=== PATIENT | male | born 1945 | race Caucasian/White ===

== ENCOUNTER 2020-12-26 11:05 | Inpatient (IN) ==
[2020-12-26] MEDS ORDERED: ONDANSETRON 4 MG/2 ML VIAL IV STA (11:53)
[2020-12-26] MEDS ORDERED: HYDROmorphone 2 MG/1 ML VIAL IV STA (11:53)
[2020-12-26 12:25] LABS: Basophils % 2.3 % (0.0-0.8); Eosinophils % 1.1 % (0.00-10.9); Hematocrit 36.9 VOL% (42.0-52.0); Hemoglobin 12.6 GM/DL (14.0-18.0); Immature Granulocytes % 5.7 %; Immature Granulocytes Absolute 0.05 #; Lymphocytes # 0.4 10*3/uL (1.4-4.0); Lymphocytes % 46.6 % (21.2-54.2); Mean Corpuscular HGB Conc 34.1 GM/DL (32-36); Mean Corpuscular Volume 88.9 FL (87-102); Mean Platelet Volume 10.4 FL (9.6-12.0); Monocytes % 15.9 % (1.7-12.7); Neutrophils % 28.4 % (38.7-73.9); Platelet Count 68 T/CUMM (130-400); Red Blood Count 4.15 MC/CUMM (3.8-5.5); Red Cell Distribution Width 14.3 % (9.3-17.3)
[2020-12-26 12:29] LABS: White Blood Count 0.9 T/CUMM (4-12)
[2020-12-26 12:47] LABS: Alanine Aminotransferase 28 U/L (16-61); Albumin 3.3 G/DL (3.4-5.0); Alkaline Phosphatase 142 U/L (45-117); Aspartate Amino Transferase 19 U/L (0-37); Blood Urea Nitrogen 34 MG/DL (7-18); Calcium 7.8 MG/DL (8.5-10.1); Carbon Dioxide 24 MMOL/L (21-32); Estimated Glom Filtration Rate 47 ML/MIN; Glucose 140 MG/DL (74-106); Osmolality,Calculated 279.1 MOS/KG (273-304); Sodium 135 MMOL/L (136-145); Total Protein 6.5 G/DL (6.4-8.2)
[2020-12-26 13:13] LABS: Lymphocytes 45 % (20-55); Ovalocytes Few; Platelet Estimate Decreased; Polychromasia Slight; Segmented Neutrophils 23 % (50-85); Total Cells Counted 100
[2020-12-26 13:18] LABS: Bilirubin,Urine Negative (Negative); Blood, Urine Negative (Negative); Glucose,Urine (UA) 50 mg/dL (Negative); Ketones,Urine Negative (Negative); Nitrite,Urine Negative (Negative); Protein,Urine 30 MG/DL; RBC,Urine 1 /HPF (0-4); Urine Appearance CLEAR (Clear); Urine Color Yellow (Yellow); Urine Urobilinogen < 2.0 EU/DL (0.2-1.0)
[2020-12-26] MEDS ORDERED: hydrALAZINE 20 MG/1 ML VIAL IV PRN (14:31)
[2020-12-26] MEDS ORDERED: GLUCAGON 1 MG VIAL IM PRN (14:31)
[2020-12-26] MEDS ORDERED: DEXTROSE 50% 25 GM/50 ML VIAL IV PRN (14:31)
[2020-12-26] MEDS ORDERED: ONDANSETRON 4 MG/2 ML VIAL IV PRN (14:31)
[2020-12-26] MEDS: ALBUTEROL/IPRATROPIUM 3 ML NEB RESP TX SCH ×2 (15:00→20:05)
[2020-12-26] MEDS ORDERED: POTASSIUM CHLORIDE 20 MEQ TABLET PO ONE (15:24)
[2020-12-26] MEDS: LACTULOSE 20 GM/30 ML UDCUP PO SCH ×2 (16:56→21:21)
[2020-12-26] MEDS: DOCUSATE SODIUM 100 MG CAPSULE PO SCH ×2 (16:56→21:21)
[2020-12-26] MEDS ORDERED: SODIUM CHLORIDE 0.9% 500 ML IV ONE (19:28)
[2020-12-26] MEDS: cefTRIAXone 1,000 MG in SODIUM CHLORIDE 0.9% 100 ML IV SCH (20:47)
[2020-12-26] MEDS ORDERED: ASPIRIN EC 81 MG TABLET PO SCH (21:00)
[2020-12-26] MEDS: ATORVASTATIN 20 MG TABLET PO SCH (21:20)
[2020-12-26] MEDS: SODIUM CHLORIDE 0.9% 1,000 ML IV SCH (21:21)
[2020-12-26] MEDS: metroNIDAZOLE INJ 500 MG/100 ML PREMIX IV SCH (21:21)
[2020-12-27] MEDS: ALBUTEROL/IPRATROPIUM 3 ML NEB RESP TX SCH ×4 (01:48→20:13)
[2020-12-27] MEDS: LACTULOSE 20 GM/30 ML UDCUP PO SCH ×3 (02:34→15:34)
[2020-12-27] MEDS: SODIUM CHLORIDE 0.9% 1,000 ML IV SCH ×4 (03:10→20:36)
[2020-12-27] MEDS: metroNIDAZOLE INJ 500 MG/100 ML PREMIX IV SCH ×3 (05:10→18:36)
[2020-12-27 05:28] LABS: Basophils % 1.9 % (0.0-0.8); Hematocrit 28.5 VOL% (42.0-52.0); Hemoglobin 9.8 GM/DL (14.0-18.0); Immature Granulocytes % 5.7 %; Immature Granulocytes Absolute 0.06 #; Lymphocytes # 0.6 10*3/uL (1.4-4.0); Lymphocytes % 57.1 % (21.2-54.2); Mean Corpuscular HGB Conc 34.4 GM/DL (32-36); Mean Corpuscular Volume 89.6 FL (87-102); Mean Platelet Volume 11.2 FL (9.6-12.0); Monocytes % 27.6 % (1.7-12.7); Neutrophils % 6.7 % (38.7-73.9); Red Blood Count 3.18 MC/CUMM (3.8-5.5); Red Cell Distribution Width 14.2 % (9.3-17.3); White Blood Count 1.1 T/CUMM (4-12)
[2020-12-27 05:46] LABS: Platelet Count 37 T/CUMM (130-400)
[2020-12-27 06:40] LABS: Calcium 6.9 MG/DL (8.5-10.1); Osmolality,Calculated 279.8 MOS/KG (273-304); Potassium 3.1 MMOL/L (3.5-5.1)
[2020-12-27] MEDS ORDERED: POTASSIUM CHLORIDE 20 MEQ TABLET PO ONE (07:37)
[2020-12-27 08:14] LABS: Atypical Lymphocytes Few; Eosinophils 1 % (0-10); Lymphocytes 91 % (20-55); Macrocytosis Slight; Nucleated Red Blood Cells 1 (0-5); Platelet Estimate Decreased; Reactive Lymphocytes 3+; Segmented Neutrophils 4 % (50-85); Total Cells Counted 100
[2020-12-27] MEDS ORDERED: FILGRASTIM-SNDZ 300 MCG/0.5 ML SYRINGE SUBCUT SCH (09:00)
[2020-12-27] MEDS: PANTOPRAZOLE 40 MG TABLET PO SCH (10:49)
[2020-12-27] MEDS: DOCUSATE SODIUM 100 MG CAPSULE PO SCH ×3 (10:49→20:35)
[2020-12-27] MEDS: TAMSULOSIN 0.4 MG CAPSULE PO SCH (10:49)
[2020-12-27] MEDS: FILGRASTIM-SNDZ 480 MCG/0.8 ML SYRINGE SUBCUT SCH (10:58)
[2020-12-27] MEDS: LUBIPROSTONE 8 MCG CAPSULE PO SCH (20:34)
[2020-12-27] MEDS: ATORVASTATIN 20 MG TABLET PO SCH (20:35)
[2020-12-27] MEDS: POTASSIUM CHLORIDE 20 MEQ TABLET PO SCH (20:35)
[2020-12-27] MEDS: cefTRIAXone 1,000 MG in SODIUM CHLORIDE 0.9% 100 ML IV SCH (20:35)
[2020-12-27] MEDS: MAGNESIUM OXIDE 400 MG TABLET PO SCH (20:35)
[2020-12-28] MEDS: metroNIDAZOLE INJ 500 MG/100 ML PREMIX IV SCH ×2 (01:32→10:21)
[2020-12-28] MEDS: ALBUTEROL/IPRATROPIUM 3 ML NEB RESP TX SCH ×4 (02:42→19:27)
[2020-12-28] MEDS: SODIUM CHLORIDE 0.9% 1,000 ML IV SCH ×2 (05:14→20:35)
[2020-12-28 06:46] LABS: Basophils % 0.6 % (0.0-0.8); Eosinophils % 1.2 % (0.00-10.9); Hematocrit 24.9 VOL% (42.0-52.0); Hemoglobin 8.6 GM/DL (14.0-18.0); Immature Granulocytes % 1.7 %; Immature Granulocytes Absolute 0.06 #; Lymphocytes # 0.6 10*3/uL (1.4-4.0); Lymphocytes % 17.9 % (21.2-54.2); Mean Corpuscular HGB Conc 34.5 GM/DL (32-36); Mean Corpuscular Volume 88.6 FL (87-102); Mean Platelet Volume 11.1 FL (9.6-12.0); Monocytes % 22.2 % (1.7-12.7); Neutrophils % 56.4 % (38.7-73.9); Red Blood Count 2.81 MC/CUMM (3.8-5.5); Red Cell Distribution Width 14.3 % (9.3-17.3); White Blood Count 3.5 T/CUMM (4-12)
[2020-12-28 06:47] LABS: Platelet Count 33 T/CUMM (130-400)
[2020-12-28 07:08] LABS: Band Neutrophils 3 % (0-10); Hypochromasia 1+; Lymphocytes 15 % (20-55); Microcytosis 1+; Platelet Estimate Decreased; Segmented Neutrophils 60 % (50-85); Total Cells Counted 100
[2020-12-28 07:09] LABS: Bilirubin,Total 0.5 MG/DL (0.2-1.0); Calcium 6.6 MG/DL (8.5-10.1); Osmolality,Calculated 283.1 MOS/KG (273-304); Potassium 2.6 MMOL/L (3.5-5.1); Total Protein 4.6 G/DL (6.4-8.2)
[2020-12-28] MEDS ORDERED: LINACLOTIDE 145 MCG CAPSULE PO SCH (07:30)
[2020-12-28] MEDS ORDERED: POTASSIUM CHLORIDE RIDER 10 MEQ/100 ML PREMIX IV PRN (07:36)
[2020-12-28] MEDS ORDERED: MAGNESIUM SULF RIDER 2 GM/50 ML PREMIX IV PRN (07:37)
[2020-12-28] MEDS: MAGNESIUM OXIDE 400 MG TABLET PO SCH ×2 (08:33→20:34)
[2020-12-28] MEDS: PANTOPRAZOLE 40 MG TABLET PO SCH (08:33)
[2020-12-28] MEDS: POTASSIUM CHLORIDE 20 MEQ TABLET PO SCH ×4 (08:33→20:34)
[2020-12-28] MEDS: DOCUSATE SODIUM 100 MG CAPSULE PO SCH (08:33)
[2020-12-28] MEDS: TAMSULOSIN 0.4 MG CAPSULE PO SCH (08:33)
[2020-12-28] MEDS: FILGRASTIM-SNDZ 480 MCG/0.8 ML SYRINGE SUBCUT SCH (08:36)
[2020-12-28] MEDS ORDERED: FILGRASTIM-SNDZ 480 MCG/0.8 ML SYRINGE SUBCUT SCH (09:00)
[2020-12-28] MEDS: LUBIPROSTONE 8 MCG CAPSULE PO SCH (10:19)
[2020-12-28] MEDS: MEROPENEM 500 MG in SODIUM CHLORIDE 0.9% 100 ML IV SCH ×3 (11:35→23:07)
[2020-12-28] MEDS: MAGNESIUM SULF RIDER 4 GM/100 ML PREMIX IV PRN (12:37)
[2020-12-28 14:24] LABS: Potassium 2.8 MMOL/L (3.5-5.1)
[2020-12-28] MEDS: CALCIUM (CARBONATE) 500 MG TABLET PO SCH (20:35)
[2020-12-28] MEDS: ATORVASTATIN 20 MG TABLET PO SCH (20:35)
[2020-12-29] MEDS: ALBUTEROL/IPRATROPIUM 3 ML NEB RESP TX SCH ×4 (00:43→19:40)
[2020-12-29] MEDS: SODIUM CHLORIDE 0.9% 1,000 ML IV SCH ×3 (02:40→20:35)
[2020-12-29] MEDS: MEROPENEM 500 MG in SODIUM CHLORIDE 0.9% 100 ML IV SCH ×4 (04:02→22:04)
[2020-12-29 04:53] LABS: Basophils # 0.1 10*3/uL (0.0-0.2); Basophils % 0.3 % (0.0-0.8); Eosinophils # 0.2 10*3/uL (0.0-0.87); Eosinophils % 1.5 % (0.00-10.9); Hematocrit 27.1 VOL% (42.0-52.0); Hemoglobin 9.6 GM/DL (14.0-18.0); Immature Granulocytes % 13.8 %; Immature Granulocytes Absolute 2.27 #; Lymphocytes # 0.9 10*3/uL (1.4-4.0); Lymphocytes % 5.2 % (21.2-54.2); Mean Corpuscular HGB Conc 35.4 GM/DL (32-36); Mean Corpuscular Volume 87.4 FL (87-102); Mean Platelet Volume 11.1 FL (9.6-12.0); Monocytes % 10.9 % (1.7-12.7); NRBC # 0.08 10*3/uL; Neutrophils % 68.3 % (38.7-73.9); Platelet Count 52 T/CUMM (130-400); Red Cell Distribution Width 15.1 % (9.3-17.3); White Blood Count 16.4 T/CUMM (4-12)
[2020-12-29 05:12] LABS: Calcium 7.3 MG/DL (8.5-10.1); Osmolality,Calculated 279.1 MOS/KG (273-304); Potassium 4.2 MMOL/L (3.5-5.1)
[2020-12-29 05:27] LABS: Band Neutrophils 1 % (0-10); Eosinophils 3 % (0-10); Hypochromasia 1+; Lymphocytes 5 % (20-55); Microcytosis 1+; Ovalocytes Slight; Platelet Estimate Decreased; Segmented Neutrophils 83 % (50-85); Total Cells Counted 100
[2020-12-29] MEDS ORDERED: MAGNESIUM SULF RIDER 4 GM/100 ML PREMIX IV ONE (08:03)
[2020-12-29] MEDS: POTASSIUM CHLORIDE 20 MEQ TABLET PO SCH (09:04)
[2020-12-29] MEDS: MAGNESIUM OXIDE 400 MG TABLET PO SCH ×2 (09:04→22:01)
[2020-12-29] MEDS: CALCIUM (CARBONATE) 500 MG TABLET PO SCH ×2 (09:04→22:02)
[2020-12-29] MEDS: TAMSULOSIN 0.4 MG CAPSULE PO SCH (09:04)
[2020-12-29] MEDS: PANTOPRAZOLE 40 MG TABLET PO SCH (09:04)
[2020-12-29] MEDS: CHOLECALCIFEROL 1,000 UNIT TABLET PO SCH (09:05)
[2020-12-29] MEDS: ATORVASTATIN 20 MG TABLET PO SCH (22:02)
[2020-12-30] MEDS: ALBUTEROL/IPRATROPIUM 3 ML NEB RESP TX SCH ×4 (00:48→20:49)
[2020-12-30 05:39] LABS: Basophils % 0.2 % (0.0-0.8); Eosinophils # 0.2 10*3/uL (0.0-0.87); Eosinophils % 0.9 % (0.00-10.9); Hematocrit 27.1 VOL% (42.0-52.0); Hemoglobin 9.9 GM/DL (14.0-18.0); Immature Granulocytes % 16.4 %; Immature Granulocytes Absolute 3.48 #; Lymphocytes % 4.5 % (21.2-54.2); Mean Corpuscular HGB Conc 36.5 GM/DL (32-36); Mean Platelet Volume 10.7 FL (9.6-12.0); Monocytes % 11.2 % (1.7-12.7); Neutrophils % 66.8 % (38.7-73.9); Platelet Count 69 T/CUMM (130-400); Red Blood Count 3.19 MC/CUMM (3.8-5.5); Red Cell Distribution Width 15.4 % (9.3-17.3); White Blood Count 21.2 T/CUMM (4-12)
[2020-12-30 06:02] LABS: Anisocytosis 2+; Band Neutrophils 26 % (0-10); Eosinophils 2 % (0-10); Lymphocytes 9 % (20-55); Metamyelocytes 3 %; Myelocytes 8 %; Nucleated Red Blood Cells 1 (0-5); Ovalocytes Few; Platelet Estimate Decreased; Promyelocytes 1 %; Segmented Neutrophils 47 % (50-85); Smudge Cells Few; Total Cells Counted 100
[2020-12-30 06:03] LABS: Macrocytosis Slight; Spherocytes Few
[2020-12-30] MEDS: MEROPENEM 500 MG in SODIUM CHLORIDE 0.9% 100 ML IV SCH ×3 (06:03→21:30)
[2020-12-30 06:11] LABS: Calcium 7.4 MG/DL (8.5-10.1); Osmolality,Calculated 276.4 MOS/KG (273-304); Potassium 3.1 MMOL/L (3.5-5.1)
[2020-12-30] MEDS: PANTOPRAZOLE 40 MG TABLET PO SCH (08:54)
[2020-12-30] MEDS: TAMSULOSIN 0.4 MG CAPSULE PO SCH (08:54)
[2020-12-30] MEDS: CALCIUM (CARBONATE) 500 MG TABLET PO SCH ×2 (08:55→21:31)
[2020-12-30] MEDS: MAGNESIUM OXIDE 400 MG TABLET PO SCH ×2 (08:55→21:32)
[2020-12-30] MEDS: POTASSIUM CHLORIDE 20 MEQ TABLET PO SCH ×2 (08:55→10:40)
[2020-12-30] MEDS: CHOLECALCIFEROL 1,000 UNIT TABLET PO SCH (08:55)
[2020-12-30] MEDS: SPIRONOLACTONE 25 MG TABLET PO SCH (10:19)
[2020-12-30] MEDS ORDERED: POTASSIUM CHLORIDE 20 MEQ TABLET PO PRN (10:21)
[2020-12-30] MEDS ORDERED: MAGNESIUM SULF RIDER 4 GM/100 ML PREMIX IV ONE (10:21)
[2020-12-30] MEDS: MAGNESIUM SULF RIDER 4 GM/100 ML PREMIX IV PRN (10:40)
[2020-12-30] MEDS: POTASSIUM CHLORIDE 20 MEQ TABLET PO PRN ×4 (10:58→16:25)
[2020-12-30] MEDS: SODIUM CHLORIDE 0.9% 1,000 ML IV SCH (11:01)
[2020-12-30] MEDS: ATORVASTATIN 20 MG TABLET PO SCH (21:32)
[2020-12-31] MEDS: ALBUTEROL/IPRATROPIUM 3 ML NEB RESP TX SCH ×2 (00:52→07:35)
[2020-12-31] MEDS: MEROPENEM 500 MG in SODIUM CHLORIDE 0.9% 100 ML IV SCH ×2 (02:30→10:01)
[2020-12-31 06:17] LABS: Basophils # 0.1 10*3/uL (0.0-0.2); Basophils % 0.7 % (0.0-0.8); Eosinophils # 0.2 10*3/uL (0.0-0.87); Eosinophils % 1.3 % (0.00-10.9); Hematocrit 27.8 VOL% (42.0-52.0); Hemoglobin 9.8 GM/DL (14.0-18.0); Immature Granulocytes % 21.3 %; Immature Granulocytes Absolute 2.86 #; Lymphocytes # 0.8 10*3/uL (1.4-4.0); Lymphocytes % 6.1 % (21.2-54.2); Mean Corpuscular HGB Conc 35.3 GM/DL (32-36); Mean Corpuscular Volume 86.1 FL (87-102); Mean Platelet Volume 9.9 FL (9.6-12.0); Monocytes % 11.5 % (1.7-12.7); NRBC # 0.07 10*3/uL; Neutrophils % 59.1 % (38.7-73.9); Platelet Count 84 T/CUMM (130-400); Red Blood Count 3.23 MC/CUMM (3.8-5.5); Red Cell Distribution Width 15.7 % (9.3-17.3); White Blood Count 13.4 T/CUMM (4-12)
[2020-12-31 06:41] LABS: Calcium 7.8 MG/DL (8.5-10.1)
[2020-12-31 06:42] LABS: Osmolality,Calculated 269.8 MOS/KG (273-304); Potassium 3.7 MMOL/L (3.5-5.1)
[2020-12-31 06:45] LABS: Anisocytosis 2+; Atypical Lymphocytes Few; Band Neutrophils 18 % (0-10); Eosinophils 4 % (0-10); Lymphocytes 15 % (20-55); Metamyelocytes 4 %; Myelocytes 3 %; Nucleated Red Blood Cells 1 (0-5); Platelet Estimate Decreased; Poikilocytosis 1+; Promyelocytes 1 %; Segmented Neutrophils 46 % (50-85); Total Cells Counted 100
[2020-12-31 06:46] LABS: Ovalocytes Few
[2020-12-31] MEDS: MAGNESIUM SULF RIDER 4 GM/100 ML PREMIX IV PRN (09:54)
[2020-12-31] MEDS: CHOLECALCIFEROL 1,000 UNIT TABLET PO SCH (09:55)
[2020-12-31] MEDS: PANTOPRAZOLE 40 MG TABLET PO SCH (09:55)
[2020-12-31] MEDS: CALCIUM (CARBONATE) 500 MG TABLET PO SCH (09:55)
[2020-12-31] MEDS: SPIRONOLACTONE 25 MG TABLET PO SCH (09:55)
[2020-12-31] MEDS: TAMSULOSIN 0.4 MG CAPSULE PO SCH (09:56)
[2020-12-31] MEDS: POTASSIUM CHLORIDE 20 MEQ TABLET PO SCH (10:00)
[2020-12-31] MEDS: MAGNESIUM OXIDE 400 MG TABLET PO SCH (10:18)
[2020-12-31 12:16] VITALS: BP 119/70
[2020-12-31] MEDS ORDERED: MAGNESIUM OXIDE 400 MG TABLET PO SCH (15:00)
[2021-01-02 00:56] LABS: CDT Result Negative (Negative); CDT Specimen Source STOOL
== END 2020-12-31 13:32 | disposition home or self-care (01) | DRG 391 ==
LOC: N.ED 11:05 → N.EDINP 14:29 → SUATTDRO 14:29 → N.4E 15:58
PROVIDERS: ADMIT Internal Medicine; ATTEND Hospitalist

== ENCOUNTER 2021-06-08 11:57 | Inpatient (IN) ==
[2021-06-08 12:35] LABS: Basophils # 0.1 10*3/uL (0.0-0.2); Basophils % 0.4 % (0.0-0.8); Eosinophils % 0.2 % (0.00-10.9); Hematocrit 42.5 VOL% (42.0-52.0); Hemoglobin 13.8 GM/DL (14.0-18.0); Immature Granulocytes % 0.6 %; Immature Granulocytes Absolute 0.08 #; Lymphocytes # 1.7 10*3/uL (1.4-4.0); Lymphocytes % 13.1 % (21.2-54.2); Mean Corpuscular HGB Conc 32.5 GM/DL (32-36); Mean Corpuscular Volume 93.8 FL (87-102); Mean Platelet Volume 8.8 FL (9.6-12.0); Monocytes % 12.3 % (1.7-12.7); Neutrophils % 73.4 % (38.7-73.9); Platelet Count 177 T/CUMM (130-400); Red Blood Count 4.53 MC/CUMM (3.8-5.5); Red Cell Distribution Width 13.3 % (9.3-17.3); White Blood Count 13.3 T/CUMM (4-12)
[2021-06-08 12:56] LABS: Bilirubin,Total 0.8 MG/DL (0.20-1.00); Calcium 9.4 MG/DL (8.5-10.1); Osmolality,Calculated 280.5 MOS/KG (273-304); Potassium 4.1 MMOL/L (3.5-5.1); Total Protein 7.4 G/DL (6.4-8.2)
[2021-06-08] MEDS ORDERED: cefTRIAXone 1,000 MG in SODIUM CHLORIDE 0.9% 100 ML IV STA (16:03)
[2021-06-08] MEDS ORDERED: SODIUM CHLORIDE 0.9% 1,000 ML IV STA (16:03)
[2021-06-08 16:36] LABS: INR 1.1; PT Patient Result 11.9 SECS (10.5-12.0)
[2021-06-08] MEDS ORDERED: ALBUTEROL/IPRATROPIUM 3 ML NEB RESP TX STA (16:54)
[2021-06-08] MEDS ORDERED: DEXTROSE 50% 25 GM/50 ML SYRINGE IV PRN (18:21)
[2021-06-08] MEDS ORDERED: GLUCAGON 1 MG VIAL IM PRN (18:21)
[2021-06-08] MEDS ORDERED: BUDESONIDE 0.5 MG/2 ML NEB RESP TX STA (18:25)
[2021-06-08] MEDS: ALBUTEROL/IPRATROPIUM 3 ML NEB RESP TX SCH ×2 (19:29→23:55)
[2021-06-08] MEDS: ENOXAPARIN 40 MG/0.4 ML SYRINGE SUBCUT SCH (20:00)
[2021-06-08] MEDS: AZITHROMYCIN INJ 500 MG in SODIUM CHLORIDE 0.9% 250 ML IV SCH (20:00)
[2021-06-08] MEDS: DEXTROSE 5% NACL 0.45% 1,000 ML IV SCH (20:00)
[2021-06-08] MEDS: methylPREDNISolone SOD SUC 40 MG/1 ML VIAL IV SCH (20:00)
[2021-06-08] MEDS: ONDANSETRON 4 MG/2 ML VIAL IV SCH (20:00)
[2021-06-08] MEDS: ASPIRIN EC 81 MG TABLET PO SCH (21:36)
[2021-06-08] MEDS: CALCIUM (CARBONATE) 500 MG TABLET PO SCH (21:36)
[2021-06-08] MEDS: ATORVASTATIN 20 MG TABLET PO SCH (21:36)
[2021-06-08] MEDS: MAGNESIUM OXIDE 400 MG TABLET PO SCH (21:37)
[2021-06-09] MEDS: ONDANSETRON 4 MG/2 ML VIAL IV SCH ×3 (00:34→14:12)
[2021-06-09] MEDS: methylPREDNISolone SOD SUC 40 MG/1 ML VIAL IV SCH ×4 (00:34→18:02)
[2021-06-09] MEDS: ALBUTEROL/IPRATROPIUM 3 ML NEB RESP TX SCH ×6 (03:23→23:31)
[2021-06-09 04:30] LABS: Basophils % 0.1 % (0.0-0.8); Hematocrit 31.2 VOL% (42.0-52.0); Immature Granulocytes % 0.3 %; Immature Granulocytes Absolute 0.03 #; Lymphocytes # 0.9 10*3/uL (1.4-4.0); Lymphocytes % 10.1 % (21.2-54.2); Mean Corpuscular HGB Conc 32.7 GM/DL (32-36); Mean Platelet Volume 9.4 FL (9.6-12.0); Monocytes % 4.3 % (1.7-12.7); Neutrophils % 85.2 % (38.7-73.9); Red Cell Distribution Width 13.2 % (9.3-17.3)
[2021-06-09 04:35] LABS: Hemoglobin 10.2 GM/DL (14.0-18.0); Platelet Count 126 T/CUMM (130-400); Red Blood Count 3.32 MC/CUMM (3.8-5.5); White Blood Count 8.7 T/CUMM (4-12)
[2021-06-09 04:54] LABS: Calcium 7.7 MG/DL (8.5-10.1); Osmolality,Calculated 293.8 MOS/KG (273-304); Potassium 3.5 MMOL/L (3.5-5.1)
[2021-06-09] MEDS: DEXTROSE 5% NACL 0.45% 1,000 ML IV SCH (08:10)
[2021-06-09] MEDS: CHOLECALCIFEROL 1,000 UNIT TABLET PO SCH (09:37)
[2021-06-09] MEDS: MAGNESIUM OXIDE 400 MG TABLET PO SCH ×3 (09:37→21:51)
[2021-06-09] MEDS: TAMSULOSIN 0.4 MG CAPSULE PO SCH (09:37)
[2021-06-09] MEDS: LORATADINE 10 MG TABLET PO SCH (10:20)
[2021-06-09] MEDS: FLUTICASONE 50 MCG NASAL SPRAY 16 GM BOTTLE BOTH NARES SCH (10:20)
[2021-06-09] MEDS: CALCIUM (CARBONATE) 500 MG TABLET PO SCH ×2 (10:20→21:51)
[2021-06-09] MEDS: INSULIN LISPRO 100 UNIT/ML SUBCUT SCH ×3 (12:16→22:05)
[2021-06-09] MEDS ORDERED: ONDANSETRON 4 MG/2 ML VIAL IV PRN (15:00)
[2021-06-09] MEDS: ENOXAPARIN 40 MG/0.4 ML SYRINGE SUBCUT SCH (17:35)
[2021-06-09] MEDS: AZITHROMYCIN INJ 500 MG in SODIUM CHLORIDE 0.9% 250 ML IV SCH (17:36)
[2021-06-09] MEDS: PANTOPRAZOLE 40 MG TABLET PO SCH (17:50)
[2021-06-09] MEDS: ASPIRIN EC 81 MG TABLET PO SCH (21:51)
[2021-06-09] MEDS: ATORVASTATIN 20 MG TABLET PO SCH (21:52)
[2021-06-10] MEDS: methylPREDNISolone SOD SUC 40 MG/1 ML VIAL IV SCH ×4 (01:07→21:24)
[2021-06-10] MEDS: ALBUTEROL/IPRATROPIUM 3 ML NEB RESP TX SCH ×5 (03:19→20:30)
[2021-06-10 05:48] LABS: Basophils % 0.1 % (0.0-0.8); Hematocrit 32.5 VOL% (42.0-52.0); Hemoglobin 10.7 GM/DL (14.0-18.0); Immature Granulocytes % 0.4 %; Immature Granulocytes Absolute 0.04 #; Lymphocytes # 0.6 10*3/uL (1.4-4.0); Mean Corpuscular HGB Conc 32.9 GM/DL (32-36); Mean Corpuscular Volume 92.9 FL (87-102); Mean Platelet Volume 9.5 FL (9.6-12.0); Monocytes % 5.8 % (1.7-12.7); Neutrophils % 87.7 % (38.7-73.9); Platelet Count 149 T/CUMM (130-400); Red Cell Distribution Width 13.2 % (9.3-17.3); White Blood Count 9.6 T/CUMM (4-12)
[2021-06-10 06:08] LABS: Osmolality,Calculated 289.4 MOS/KG (273-304); Potassium 3.8 MMOL/L (3.5-5.1)
[2021-06-10] MEDS: INSULIN LISPRO 100 UNIT/ML SUBCUT SCH ×4 (09:10→21:25)
[2021-06-10] MEDS: CHOLECALCIFEROL 1,000 UNIT TABLET PO SCH (10:49)
[2021-06-10] MEDS: CALCIUM (CARBONATE) 500 MG TABLET PO SCH ×2 (10:49→21:26)
[2021-06-10] MEDS: MAGNESIUM OXIDE 400 MG TABLET PO SCH ×3 (10:49→21:26)
[2021-06-10] MEDS: TAMSULOSIN 0.4 MG CAPSULE PO SCH (10:49)
[2021-06-10] MEDS: MECLIZINE 25 MG TABLET PO SCH ×3 (10:49→21:25)
[2021-06-10] MEDS: LORATADINE 10 MG TABLET PO SCH (10:52)
[2021-06-10] MEDS: INSULIN GLARGINE 100 UNIT/ML SUBCUT SCH (10:52)
[2021-06-10] MEDS: FLUTICASONE 50 MCG NASAL SPRAY 16 GM BOTTLE BOTH NARES SCH (12:21)
[2021-06-10] MEDS: PANTOPRAZOLE 40 MG TABLET PO SCH (16:32)
[2021-06-10] MEDS: ENOXAPARIN 40 MG/0.4 ML SYRINGE SUBCUT SCH (18:22)
[2021-06-10] MEDS: AZITHROMYCIN INJ 500 MG in SODIUM CHLORIDE 0.9% 250 ML IV SCH (18:22)
[2021-06-10] MEDS: ASPIRIN EC 81 MG TABLET PO SCH (21:25)
[2021-06-10] MEDS: ATORVASTATIN 20 MG TABLET PO SCH (21:26)
[2021-06-11] MEDS: ALBUTEROL/IPRATROPIUM 3 ML NEB RESP TX SCH ×5 (00:25→14:20)
[2021-06-11] MEDS: methylPREDNISolone SOD SUC 40 MG/1 ML VIAL IV SCH ×4 (05:37→21:49)
[2021-06-11] MEDS: CALCIUM (CARBONATE) 500 MG TABLET PO SCH ×2 (09:44→21:49)
[2021-06-11] MEDS: MECLIZINE 25 MG TABLET PO SCH ×3 (09:44→21:47)
[2021-06-11] MEDS: LORATADINE 10 MG TABLET PO SCH (09:44)
[2021-06-11] MEDS: TAMSULOSIN 0.4 MG CAPSULE PO SCH (09:44)
[2021-06-11] MEDS: CHOLECALCIFEROL 1,000 UNIT TABLET PO SCH (09:44)
[2021-06-11] MEDS: MAGNESIUM OXIDE 400 MG TABLET PO SCH ×3 (09:44→21:49)
[2021-06-11] MEDS: INSULIN LISPRO 100 UNIT/ML SUBCUT SCH ×4 (09:45→21:48)
[2021-06-11] MEDS: INSULIN GLARGINE 100 UNIT/ML SUBCUT SCH (09:45)
[2021-06-11] MEDS: PANTOPRAZOLE 40 MG TABLET PO SCH (17:03)
[2021-06-11] MEDS: AZITHROMYCIN 250 MG TABLET PO SCH (17:03)
[2021-06-11] MEDS: FLUTICASONE 50 MCG NASAL SPRAY 16 GM BOTTLE BOTH NARES SCH (17:04)
[2021-06-11] MEDS: ENOXAPARIN 40 MG/0.4 ML SYRINGE SUBCUT SCH (19:04)
[2021-06-11] MEDS: ASPIRIN EC 81 MG TABLET PO SCH (21:48)
[2021-06-11] MEDS: ATORVASTATIN 20 MG TABLET PO SCH (21:48)
[2021-06-12] MEDS: ALBUTEROL/IPRATROPIUM 3 ML NEB RESP TX SCH ×4 (00:32→11:40)
[2021-06-12] MEDS: methylPREDNISolone SOD SUC 40 MG/1 ML VIAL IV SCH ×2 (04:23→08:13)
[2021-06-12] MEDS: INSULIN LISPRO 100 UNIT/ML SUBCUT SCH ×2 (07:30→12:38)
[2021-06-12 08:10] VITALS: BP 118/54
[2021-06-12] MEDS: INSULIN GLARGINE 100 UNIT/ML SUBCUT SCH (08:14)
[2021-06-12] MEDS: FLUTICASONE 50 MCG NASAL SPRAY 16 GM BOTTLE BOTH NARES SCH (08:14)
[2021-06-12] MEDS: MAGNESIUM OXIDE 400 MG TABLET PO SCH (08:14)
[2021-06-12] MEDS: CHOLECALCIFEROL 1,000 UNIT TABLET PO SCH (08:14)
[2021-06-12] MEDS: LORATADINE 10 MG TABLET PO SCH (08:15)
[2021-06-12] MEDS: MECLIZINE 25 MG TABLET PO SCH (08:15)
[2021-06-12] MEDS: AZITHROMYCIN 250 MG TABLET PO SCH (08:15)
[2021-06-12] MEDS: TAMSULOSIN 0.4 MG CAPSULE PO SCH (08:15)
[2021-06-12] MEDS: CALCIUM (CARBONATE) 500 MG TABLET PO SCH (08:15)
== END 2021-06-12 16:18 | disposition home or self-care (01) | DRG 190 ==
LOC: N.ED 11:57 → N.EDINP 18:21 → N.5E 06-09 12:45
PROVIDERS: ADMIT Internal Medicine; ATTEND Internal Medicine